=== PATIENT | female | born 1970 | race Caucasian/White ===

== ENCOUNTER → 2017-04-02 | Outpatient (CLI) | payer OTHER ==
[2017-04-03 10:23] LABS: INTERNAL CONTROL VALID? YES
== END | disposition home or self-care (01) ==
LOC: RAD 09:52
PROVIDERS: Radiology Diagnostic Radiology
PROC: BU18YZZ Fluoroscopy of Uterus and Fallopian Tubes using Other Contrast (ICD-10-PCS; principal; 2017-04-02)
PROC: 0UJ87ZZ Inspection of Fallopian Tube, Via Natural or Artificial Opening (ICD-10-PCS; principal; 2017-04-02)
PROC: 0UJD7ZZ Inspection of Uterus and Cervix, Via Natural or Artificial Opening (ICD-10-PCS; principal; 2017-04-02)
DX: Z31.41 Encounter for fertility testing (principal); Z78.9 Other specified health status; Z98.890 Other specified postprocedural states
CPT/HCPCS: 74740; 84703